=== PATIENT | male | born 1985 | race Caucasian/White ===

== ENCOUNTER 2019-05-06 14:52 | Emergency (ER) | payer OTHER ==
[2019-05-06 16:49] LABS: ABS Basophils 0.1 10^3/ul (0-0.2); ABS Eosinophils 0.6 10^3/ul (0-0.6); ABS Monocytes 0.8 10^3/ul (0-0.8); ABS Neutrophils 4.5 10^3/ul (1.5-7.7); Eosinophil % 7.4 %; Hematocrit 40 % (42-52); Hemoglobin 13.9 g/dL (14.0-18.0); Lymphocyte % 25.5 %; Mean Corpuscular HGB Conc 35 g/dL (31-36); Mean Corpuscular Hemoglobin 32 pg (27-31); Mean Corpuscular Volume 92 fL (80-94); Mean Platelet Volume 8.1 fL (7.4-10.4); Platelet Count 232 10^3/uL (150-450); Red Blood Count 4.32 10^6 /uL (4.18-5.48); Red Cell Distribution Width 14 % (10-15); White Blood Count 7.9 10^3/uL (3.5-10.8)
[2019-05-06 17:21] LABS: Albumin/Globulin Ratio 1.8 (1-3); BUN/Creatinine Ratio 29.6 (8-20); C Reactive Protein 2.12 mg/L (<8.01); Calcium 9.3 mg/dL (8.6-10.3); EGFR African American 105.3 (>60); Globulin 2.2 g/dL (2-4); Potassium 4.8 mmol/L (3.5-5.0); Total Bilirubin 0.3 mg/dL (0.2-1.0); Total Protein 6.2 g/dL (6.4-8.9)
--- NOTE | 2019-05-06 19:24 | ED ---
Abdominal Pain/Male - HPI Summary HPI Summary: This pt is a 33 y/o male presenting to [facility] [place]/o hernia on left groin for the past few months. Pt reports he was able to reduce the hernia on his left groin but has not been able to recently. He notes he has pain around his left groin. Denies fever, nausea, vomiting. Pt has hx of 2 repaired hernias (one on abdomen and the other on right groin). Pt is currently at the rehab program in [place] for substance abuse. Hx of diverticulitis. NKDA. - History of Current Complaint Chief Complaint: EDAbdPain Stated Complaint: POSS HERNIA PAIN PER PT Time Seen by Provider: 05/06/19 19:14 Hx Obtained From: Patient Onset/Duration: Lasting Weeks, Still Present Timing: Lasting Weeks Severity Currently: Severe Pain Intensity: 7 Pain Scale Used: 0-10 Numeric Location: Groin - left Radiates: No Aggravating Factor(s): Nothing Alleviating Factor(s): Nothing Associated Signs And Symptoms: Negative: Fever, Nausea, Vomiting - Allergies/Home Medications Allergies/Adverse Reactions: Allergies Allergy/AdvReac Type Severity Reaction Status Date / Time No Known Allergies Allergy Verified 05/06/19 15:00 Home Medications: Home Medications NK [No Home Medications Reported] 05/06/19 [History Confirmed 05/06/19] PMH/Surg Hx/FS Hx/Imm Hx Cardiovascular History: Denies: Hx Pacemaker/ICD History: Reports: Other Problems/Disorders - Diverticulitis Sensory History: Denies: Hx Hearing Aid Psychiatric History: Reports: Hx Substance Abuse Denies: Hx Panic Disorder - Surgical History Surgical History: Yes Surgery Procedure, Year, and Place: HERNIA 2009. [facility] Infectious Disease History: No Infectious Disease History: Denies: Traveled Outside the [place] in Last 30 Days - Family History Known Family History: Negative: Cardiac Disease, Hypertension, Diabetes - Social History Alcohol Use: Occasionally Hx Substance Use: Yes - in [place] for substance abuse Substance Use Type: Reports: None Smoking Status (MU): Heavy Every Day Tobacco Smoker Review of Systems Negative: Fever Cardiovascular: Negative Respiratory: Negative Positive: Abdominal Pain - left groin. Negative: Vomiting, Nausea All Other Systems Reviewed And Are Negative: Yes Physical Exam - Summary Physical Exam Summary: Appearance: Well appearing, no pain distress Skin: warm, dry, reflects adequate perfusion Head/face: normal Eyes: EOMI, PHILIPPE ENT: normal Neck: supple, non-tender Respiratory: CTA, breath sounds present Cardiovascular: RRR, pulses symmetrical Abdomen: non-tender, soft, reducible hernia on left groin Musculoskeletal: normal, strength/ROM intact Neuro: normal, sensory motor intact, A&Ox3 Triage Information Reviewed: Yes Vital Signs On Initial Exam: Initial Vitals Temp Pulse Resp BP Pulse Ox 98.6 F 82 16 169/82 98 05/06/19 14:57 05/06/19 14:57 05/06/19 14:57 05/06/19 14:57 05/06/19 14:57 Vital Signs Reviewed: Yes Diagnostics - Vital Signs Vital Signs Temp Pulse Resp BP Pulse Ox 05/06/19 19:16 72 141/85 99 05/06/19 19:00 71 100 05/06/19 18:47 70 143/85 100 05/06/19 18:46 68 100 05/06/19 16:40 99.2 F 69 16 129/64 97 05/06/19 14:57 98.6 F 82 16 169/82 98 - Laboratory Lab Results: Lab Results 05/06/19 05/06/19 05/06/19 Range/Units 16:31 16:31 16:31 WBC 7.9 (3.5-10.8) 10^3/uL RBC 4.32 (4.18-5.48) 10^6 /uL Hgb 13.9 L (14.0-18.0) g/dL Hct 40 L (42-52) % MCV 92 (80-94) fL MCH 32 H (27-31) pg MCHC 35 (31-36) g/dL RDW 14 (10-15) % Plt Count 232 (150-450) 10^3/uL MPV 8.1 (7.4-10.4) fL Neut % (Auto) 56.1 % Lymph % (Auto) 25.5 % Ness % (Auto) 10.0 % Eos % (Auto) 7.4 % Baso % (Auto) 1.0 % Absolute Neuts (auto) 4.5 (1.5-7.7) 10^3/ul Absolute Lymphs (auto) 2.0 (1.0-4.8) 10^3/ul Absolute Monos (auto) 0.8 (0-0.8) 10^3/ul Absolute Eos (auto) 0.6 (0-0.6) 10^3/ul Absolute Basos (auto) 0.1 (0-0.2) 10^3/ul Absolute Nucleated RBC 0.0 10^3/ul Nucleated RBC % 0.0 Sodium 136 (135-145) mmol/L Potassium 4.8 (3.5-5.0) mmol/L Chloride 104 (101-111) mmol/L Carbon Dioxide 28 (22-32) mmol/L Anion Gap 4 (2-11) mmol/L BUN 29 H (6-24) mg/dL Creatinine 0.98 (0.67-1.17) mg/dL Est GFR ( Amer) 105.3 (>60) Est GFR (Non-Af Amer) 87.0 (>60) BUN/Creatinine Ratio 29.6 H (8-20) Glucose 93 (70-100) mg/dL Lactic Acid 0.6 (0.5-2.0) mmol/L Calcium 9.3 (8.6-10.3) mg/dL Total Bilirubin 0.30 (0.2-1.0) mg/dL AST 41 H (13-39) U/L ALT 37 (7-52) U/L Alkaline Phosphatase 57 (34-104) U/L C-Reactive Protein 2.12 (<8.01) mg/L Total Protein 6.2 L (6.4-8.9) g/dL Albumin 4.0 (3.2-5.2) g/dL Globulin 2.2 (2-4) g/dL Albumin/Globulin Ratio 1.8 (1-3) Lipase 32 (11.0-82.0) U/L Result Diagrams: 05/06/19 16:31 05/06/19 16:31 Lab Statement: Any lab studies that have been ordered have been reviewed, and results considered in the medical decision making process. Abdominal Pain Male Course/Dx - Course Assessment/Plan: Pt is a 33 y/o male presenting to [facility] [place]/o hernia on left groin for the past few months. Pt reports he was able to reduce the hernia on his left groin but has not been able to recently. He notes he has pain around his left groin. Blood work was obtained. In the ED course the pt was given IV fluids, toradol, morphine. CT abdomen/pelvis was ordered. Pt will be signed out to ROSALIND Mullins, pending CT abdomen/pelvis. - Diagnoses Provider Diagnoses: Abdominal pain, Reducible inguinal hernia Discharge - Sign-Out/Discharge Documenting (check all that apply): Sign-Out Patient Signing out patient TO: Donnie Watson - pending CT A/P Patient Received Moderate/Deep Sedation with Procedure: No - Discharge Plan Condition: Stable Referrals: [facility] [Outside] - Billing Disposition and Condition Condition: STABLE - Attestation Statements Document Initiated by Scribe: Yes Documenting Scribe: Ila Jonas Provider For Whom Scribe is Documenting (Include Credential): Mike Jones MD Scribe Attestation: Ila Solomon scribed for Mike Jones MD on 05/06/19 at 2152. Scribe Documentation Reviewed: Yes Provider Attestation: The documentation as recorded by the Ila smiley accurately reflects the service I personally performed and the decisions made by Mike loyd MD Status of Scribe Document: Viewed
[2019-05-06] MEDS ORDERED: NS 0.9% 1000 ML** 1,000 ML IV SCH (19:30)
[2019-05-06 19:57] LABS: Urine Appearance Clear; Urine Bilirubin Negative (Negative); Urine Blood Negative (Negative); Urine Color Colorless; Urine Glucose Negative (Negative); Urine Ketones Negative (Negative); Urine Nitrite Negative (Negative); Urine Protein Negative (Negative); Urine Specific Gravity 1.004 (1.010-1.030); Urine Urobilinogen Negative (Negative)
[2019-05-06] MEDS ORDERED: Ketorolac INJ* 30 MG/ML 1 ML VIAL IV PUSH ONE (20:03)
[2019-05-06] MEDS ORDERED: Iohexol 300* (CONTRAST) 10 ML SDV IV ONE (21:03)
[2019-05-06] MEDS ORDERED: Morphine 4 MG/ML VIAL (1 ml) 4 MG/ML VIAL IV ONE (21:27)
--- NOTE | 2019-05-06 23:02 | PN ---
Progress Note - Progress Note Date of Service: 05/06/19 Note: Patient is signed out to me by Dr. Jones pending results of CT abdomen and pelvis. Positive for inguinal hernia with no bowel involvement. Labs unremarkable. Vital signs unremarkable. Recommend Follow-up with GI for further evaluation. Patient understands and approves.
[2019-05-06 23:24] VITALS: BP 136/81
== END 2019-05-06 23:23 | disposition home or self-care (01) ==
LOC: ED 14:52
DX: K40.90 Unilateral inguinal hernia, without obstruction or gangrene, not specified as recurrent (principal); F17.210 Nicotine dependence, cigarettes, uncomplicated
CPT/HCPCS: 36415; 74177; 80053; 81003; 83605; 83690; 85025; 86140; 96361; 96374; 96375; 99283; J1885; J2270; Q9967